=== PATIENT | male | born 1945 | race Caucasian/White ===

== ENCOUNTER 2021-11-07 07:38 | Outpatient (CLI) | payer OTHER, SELFPAY ==
--- NOTE | 2021-11-07 12:00 | CRLHL7_ITS ---
For Patients: As a result of the Century Cures Act, medical imaging exams and procedure reports are released immediately into your electronic medical record. You may view this report before your referring provider. If you have questions, please contact your health care provider. HISTORY: 76-year-old male. Prostate cancer. TECHNIQUE: 26.0 millicuries of [id number] was injected intravenously. Delayed images of the skeleton were obtained in the anterior and posterior projections. FINDINGS: There is good uptake of activity by the skeleton. Mild uptake in the hands and wrists, shoulders, left sternoclavicular joint, cervical, thoracic and lumbar spine, right knee and feet has a pattern and appearance most characteristic of benign arthritic changes. There is urinary contamination. No other significant bony abnormalities are identified. IMPRESSION: 1. There is no convincing evidence of skeletal metastases. 2. There are mild benign-appearing arthritic changes. Dictated by Juventino Morales MD @ 11/07/2021 3:52:21 PM (Electronically Signed)
== END 2021-11-07 07:39 | disposition home or self-care (01) ==
PROVIDERS: Visit Provider Internal Medicine
DX: C61 Malignant neoplasm of prostate (principal); Z01.89 Encounter for other specified special examinations
CPT/HCPCS: 78306; A9503

== ENCOUNTER 2023-11-11 08:07 | Emergency (ER) | payer OTHER, SELFPAY ==
[2023-11-11 08:09] VITALS: BP 115/65; PULSE 56; RESP 16; TEMP 36; O2SAT 99; BMI 21.4
--- NOTE | 2023-11-11 08:49 | ED.GENADULT ---
HPI - General Adult General Date Seen: 11/11/23 Chief complaint: Sore Throat Stated complaint: Sore throat, armpit rash Time Seen by Provider: 11/11/23 08:10 Source: patient Mode of arrival: ambulatory Limitations: no limitations History of Present Illness HPI narrative: patient is a 78-year-old male presenting to the emergency department for concerns about a rash and sore throat. States the rash has been going on for the past few days. It is he notes is and his bilateral axillary and groin regions. Worse in the axillary regions. States he has been working outside for about 10 hours a day in the heat. Denies symptoms like this before. States the going rash isn't really bothering him at this time. Also started noticing yesterday he had a sore throat. Is eating and drinking well. Denies painful swallowing. Denies shortness of breath, chest pain, cough. No other concerns noted. Not aware of any sick contacts. Related Data Home Medications ?Medication ?Instructions ?Recorded ?Confirmed aspirin 81 mg capsule 81 mg PO DAILY 11/11/23 11/11/23 atenolol 25 mg tablet 25 mg PO DAILY 11/11/23 11/11/23 atorvastatin 40 mg tablet 40 mg PO QHS 11/11/23 11/11/23 cholecalif 25 mcg PO DAILY 11/11/23 11/11/23 lisinopril 20 mg tablet 20 mg PO DAILY 11/11/23 11/11/23 Allergies Allergy/AdvReac Type Severity Reaction Status Date / Time No Known Drug Allergies Allergy Verified 11/11/23 08:16 Review of Systems Status of ROS: Reports: 10 or more systems reviewed and unremarkable except as noted in History and below [facility] Medical History Ventral hernia ?K43.9 - Ventral hernia without obstruction or gangrene (ICD-10) Prostate cancer ?C61 - Malignant neoplasm of prostate (ICD-10) Hyperlipidemia ?E78.5 - Hyperlipidemia, unspecified (ICD-10) Hypertension ?I10 - Essential (primary) hypertension (ICD-10) Social History Smoking Status: Current every day smoker What tobacco products do you use: cigarettes Smoking packs per day: 1 Smoking cigarettes per day: 20.0 Do you use any of these nicotine containing products: None How often do you have a drink containing alcohol: 2-3 times a week How many standard drinks containing alcohol do you have on a typical day: 1 or 2 How often do you have six or more drinks on one occasion: Monthly AUDIT-C Alcohol total score: 5 service: Yes Exam Narrative: Exam Narrative: Const: Well-nourished, Well-developed, in No distress Eyes: PERRL, no conjunctival injection, and symmetrical lids HENT: Atraumatic external nose and ears. Moist mucous membranes. uvula midline, no tonsillar exudates or swelling Neck: Symmetric, trachea midline, No thyromegaly. CVS: RRR, No murmurs or gallops. Peripheral pulses 2+ and equal in all extremities RESP: Unlabored respiratory effort. Clear to auscultation bilaterally. GI: Nontender/Nondistended, No rebound or guarding. MSK:Extremities w/o deformity, Normal Active ROM Skin: Warm, Dry. small red vesicles seen in axillary region bilaterally Neuro: Normal Muscle tone, No focal neurological deficits. Psych: Awake, Alert, & Oriented x3. Appropriate mood and affect. Const: Vital Signs, click to edit/add: Vital Signs - 24 hr 11/11/23 08:09 Temperature 96.8 F L Pulse Rate [Pulse Oximeter] 56 L Respiratory Rate 16 Blood Pressure [Le ft Upper Arm] 115/65 Pulse Oximetry 99 Oxygen Delivery Me thod Room Air Course Vital Signs Vital signs: Initial Vital Signs Temperature 96.8 F L 11/11/23 08:09 Temperature Source Temporal Artery Scan 11/11/23 08:09 Pulse Rate 56 L 11/11/23 08:09 Respiratory Rate 16 11/11/23 08:09 Blood Pressure 115/65 11/11/23 08:09 Blood Pressure Mean 81 11/11/23 08:09 Blood Pressure Position Sitting 11/11/23 08:09 Pulse Oximetry 99 11/11/23 08:09 Oxygen Delivery Method Room Air 11/11/23 08:09 Vital Signs Temperature 96.8 F L 11/11/23 08:09 Pulse Rate 56 L 11/11/23 08:09 Respiratory Rate 16 11/11/23 08:09 Blood Pressure 115/65 11/11/23 08:09 Pulse Oximetry 99 11/11/23 08:09 Oxygen Delivery Method Room Air 11/11/23 08:09 Temperature 96.8 F L 11/11/23 08:09 Pulse Rate 56 L 11/11/23 08:09 Respiratory Rate 16 11/11/23 08:09 Blood Pressure 115/65 11/11/23 08:09 Pulse Oximetry 99 11/11/23 08:09 Oxygen Delivery Method Room Air 11/11/23 08:09 Medical Decision Making MDM Narrative Medical decision making narrative: patient is a 78-year-old male presenting for sore throat and rash. This rash appears to be heat related. Is and areas of for chin and appears like Miliaria. no signs of superimposed infection at this time. Antibiotics not necessary. For sore throat I will do a strep swab. 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 Patient is not showing signs of peritonsillar abscess, José angina, retropharyngeal abscess,Lemierre disease or any other concerning oral pharynx or deep neck space abscesses. Imaging is not necessary. Strep swab is negative. Patient will be discharged Lab Data Labs: Lab Results 11/11/23 Range/Units 08:45 Group A Strep DNA NOT DETECTED (Not Detectd) Discharge Plan Discharge Clinical Impression: Miliaria Patient Disposition: Home, Self-Care Condition: Stable Instructions: Zinc Oxide (On the skin) Additional Instructions: your rash appears to be a heat rash. Keep the area dry and clean while working. If symptoms are not improving you can try an [id number] steroid cream. Prescriptions: No Action atenolol 25 mg tablet 25 mg PO DAILY lisinopril 20 mg tablet 20 mg PO DAILY atorvastatin 40 mg tablet 40 mg PO QHS cholecalif 25 mcg PO DAILY Patient Comments: D3-1 1000 units aspirin 81 mg capsule 81 mg PO DAILY Stand Alone Forms: Measurabl Info Instructions
--- OUTSIDE RECORDS SUMMARY | 2023-11-11 09:04 | XMS_ITS | Encounter Summary ---
Author Name [facility] Organization [facility] [place] Address [address] [place] [id number] Care Team Providers Care Special Services Agent Name Role Phone DENY MEANS Primary Care Provider Unavailab le Insurance Providers: All historical and current Section Date Range: From patient's date of to the date document was created. This section includes the names of all active insurance providers for the patient. Insurance Provider Type of Coverage Plan Name Start of Policy Coverage End of Policy Coverage Group Number Member ID Insurance Provider's Telephone Number Policy Razo's Name Patient's Relationship to Policy Razo MEDICARE (WNR) MEDICARE (M) PART A Oct 12, 2011 PART A [phone] [place] PATIENT Selected Encounter This section includes the information on record at [place] for the Encounter. Date/Time Encounter Type Encounter Description Reason Provider Source Oct 14, 2023 10:00 AM OFFICE O/P EST MOD 30 MIN OPHTHALMOLOGY ICD-10-CM H25.13 Age-related nuclear cataract, bilateral ANA,ANUJA Gonzalez IHKaryn Encounter Template Text not used by [place] Assessments - Encounter Diagnoses This section includes the primary and secondary diagnoses documented for the Encounter. Date/Time Primary/Secondary Diagnosis Diagnosis Name Provider Source Oct 14, 2023 11:19 AM PRIMARY Age-related nuclear cataract, bilateral ANAANUJA JORDAN [facility] Oct 14, 2023 11:19 AM SECONDARY Myopia, bilateral ANAANUJA JORDAN [facility] Oct 14, 2023 11:19 AM SECONDARY Presbyopia ANUJA PEREZ [facility] Oct 14, 2023 11:19 AM SECONDARY Unspecified astigmatism, bilateral ANUJA PEREZ [facility] Plan of Treatment: Future Appointments (+ 6 months) and Future Tests (+/- 45 days) The Plan of Treatment section includes future care activities for the patient [facility] [place] [facility] This section includes future appointments and future orders which are active, pending or scheduled. Future Appointments This section includes appointments that were scheduled to occur 6 months from the date of the Encounter, up to a maximum of 20 appointments. The data comes from all [place] treatment facilities. Appointment Date/Time Appointment Type Appointme nt Facility Name Mar 09, 2024 09:30 AM AMBULATORY - SURGERY [facility] Social History: Smoking Status (Most current) and Tobacco Use (All prior to encounter date) This section includes the most current, and the historical, smoking and tobacco- related health factors from the [place] facility where the Encounter took place. Current Smoking Status This section includes the most current smoking, or tobacco-related health factor, from the [place] facility where the Encounter took place. Date/Time Current Smoking Status Comment Khloe ity Jun 25, 2023 10:30 AM VA-TOBACCO USER EVERY DAY [facility] Tobacco Use History This section includes a history of the smoking, or tobacco-related health factors, that were collected on or before the date of the Encounter. The data comes from the [place] facility where the Encounter took place. 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 [facility] Jun 25, 2023 10:30 AM VA-TOBACCO USE MED NO [facility] Jun 25, 2023 10:30 AM VA-TOBACCO USE [place] 30 MIN OF WAKE UP [facility] Jun 25, 2023 10:30 AM VA-TOBACCO USER EVERY DAY [facility] Apr 10, 2022 03:17 PM VA-TOBACCO USE 30 YEARS OR MORE [facility] Apr 10, 2022 03:17 PM VA-TOBACCO USE ADVICE [facility] Apr 10, 2022 03:17 PM VA-TOBACCO USE 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 [facility] Apr 10, 2022 03:17 PM VA-TOBACCO USE MED NO [facility] Apr 10, 2022 03:17 PM VA-TOBACCO USE [place] 30 MIN OF WAKE UP [facility] Apr 10, 2022 03:17 PM VA-TOBACCO USER EVERY DAY [facility] Mar 21, 2021 02:26 PM VA-TOBACCO USE 30 YEARS OR MORE [facility] Mar 21, 2021 02:26 PM VA-TOBACCO USE ADVICE [facility] Mar 21, 2021 02:26 PM VA-TOBACCO USE 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 [facility] Mar 21, 2021 02:26 PM VA-TOBACCO USE MED NO [facility] Mar 21, 2021 02:26 PM VA-TOBACCO USE [place] 30 MIN OF WAKE UP [facility] Mar 21, 2021 02:26 PM VA-TOBACCO USER EVERY DAY [facility] Dec 03, 2018 11:04 AM VA-TOBACCO DOESNT USE [place] 30 MIN WAKEUP [facility] Dec 03, 2018 11:04 AM VA-TOBACCO USE 30 YEARS OR MORE [facility] Dec 03, 2018 11:04 AM VA-TOBACCO USE ADVICE [facility] Dec 03, 2018 11:04 AM VA-TOBACCO USE CARPET INSPECTOR YES [facility] Dec 03, 2018 11:04 AM VA-TOBACCO USE MED YES [facility] Dec 03, 2018 11:04 AM VA-TOBACCO USER EVERY DAY [facility] Apr 21, 2018 12:15 PM VA-TOBACCO USE ADVICE [facility] September 10, 2017 08:58 AM CURRENT TOBACCO USER [facility] Sep 18, 2016 10:12 AM CURRENT TOBACCO USER [facility] Jul 24, 2015 09:40 AM CURRENT TOBACCO USER [facility] Aug 04, 2014 08:53 AM CURRENT TOBACCO USER [facility] August 31, 2013 02:07 PM CURRENT TOBACCO USER [facility] Sep 30, 2011 08:40 AM CURRENT TOBACCO USER [facility] Encounter Notes: All associated encounter notes This section contains the clinical notes associated to the Encounter. Date/Time Encounter Note(s) Provider Source Oct 14, 2023 11:07 AM OPHTHALMOLOGY ATTE NDING NOTE: LOCAL TITLE: OPHTHALMOLOGY CLINIC NOTE STANDARD TITLE: OPHTHALMOLOGY ATTENDING NOTE DATE OF NOTE: OCT 14, 2023@11:07 ENTRY DATE: OCT 14, 2023@11:08:05 AUTHOR: ANUJA PEREZ EXP COSIGNER: URGENCY: STATUS: COMPLETED LOCAL TITLE: PATHOLOGY LAB TECHNICIAN NOTE STANDARD TITLE: PATHOLOGY LAB TECHNICIAN NOTE DATE OF NOTE: OCT 14, 2023@09:52 ENTRY DATE: OCT 14, 2023@09:52:40 AUTHOR: SHI JACOBO EXP COSIGNER: URGENCY: STATUS: COMPLETED Eye Start Exam Patient: [place] Sex: MALE SSN: [id number] Birthdate: [birth year] Chief complaint: patient is here for routine cehck today. states no changes or complaints. Active Problems List: Active problems - Computerized Problem List is the source for the followin. Primary malignant neoplasm of prostate (SNOMED CT 75864537) - Sparkman grade 4+3 2. Personal History of Colonic Polyps 3. Tobacco use (SNOMED CT 844888965) 4. Bilateral inguinal hernia, without mention of obstruction or gangrene - recurrent on right, repaired previously 1996 5. Sensorineural Hearing Loss 6. Tinnitus 7. High cholesterol (SNOMED CT 74302540) 8. Impotence (SNOMED CT 122374557) 9. CHRONC PERIODONTITIS NOS 10. UNSPECIFIED DENTAL CARIES 11. Cataract nos 12. Bradycardia 13. Periodontitis (SNOMED CT 61313989) 14. ARRESTED DENTAL CARIES 15. Essential hypertension 16. CHRONIC PERIODONTITIS, LOCALIZED 17. Loss of teeth (SNOMED CT 03727036) 18. Abdominal aortic aneurysm 3.0 to 5.5 centimeters in male 19. Multiple nodules of lung Surgeries: SURGERIES - NONE FOUND Full Exam Eye Medications Patient denies eye medication use. Allergies: Patient has answered NKA Past Medical History: Hypertension High cholesterol Cancer Past eye history: Past eye surgeries: Denies all Last refraction: Vision: OD:CC(with glasses) OD: 20/30-2 Pinhole: 20/ Near: 20/ Vision: OS:CC(with glasses) 0S: 20/30-1 Pinhole: 20/ Near: 20/ Current glasses: OD:-5.50 +2.25X95 Prism: OS:-5.75 +2.00X80 Prism: Add: Refraction: Manifest: YES Automated: NO OD:-5.50 +2.20Q968 20/30 OS:-5.50 +2.00X80 20/30-1 Balance: Add: +2.50 Near vision: OD : OS : OU 20 Comment: Confrontational Montiel: Full to finger counting: Right: Left: Yes Extra Ocular Movement: Normal Pupils: Right: Round Left: Round Size: Right: 3 Left: 3 React to light: Right: Yes Left: Yes Afferent pupil defect: Right:No Grade: Left: No Grade: Note: Intra-ocular pressure (IOP): OD: 14 OS: 13 iCare Dilation: mydriacyl 1% and neosynephrine OU Oct@10:04 I have reviewed and agree with the elevator technician note of today Patient is alert and oriented X3 and mood and affect are appropriate. SLE: External: normal ou Lid/Lash: normal ou Conj/Sclera:clear and quiet ou Cornea: clear ou AC: Deep & quiet ou Iris: normal without RI or defects ou Lens: 2+ ns ou Dilated exam: yes Optic nerve: normal ou, vC/D:0.3/0.3 Macula:no defects or abnormalities ou Vessels: normal ou Periphery: Flat, no abnormalities ou Vitreous: Normal, no pigment or heme ou Assessment/Plan: ns cat ou monitor, jackie velez myopia astig presbyopia RTC:1 y, mr, vtd sooner with changes Total time spent on spent on testing/chart review, exam, discussion, and charting was in excess of 30 minutes. /kasi/ ANUJA PEREZ MD STAFF BOW REPAIRER CUSTOM Signed: 10/14/2023 11:19 ANUJA PEREZ [facility] Oct 14, 2023 09:52 AM OPHTHALMOLOGY TECH NICIAN NOTE: LOCAL TITLE: PATHOLOGY LAB TECHNICIAN NOTE STANDARD TITLE: PATHOLOGY LAB TECHNICIAN NOTE DATE OF NOTE: OCT 14, 2023@09:52 ENTRY DATE: OCT 14, 2023@09:52:40 AUTHOR: SHI JACOBO EXP COSIGNER: URGENCY: STATUS: COMPLETED Eye Start Exam Patient: [place] Sex: MALE SSN: [id number] Birthdate: [birth year] Chief complaint: patient is here for routine cehck today. states no changes or complaints. Active Problems List: Active problems - Computerized Problem List is the source for the followin. Primary malignant neoplasm of prostate (SNOMED CT 22424555) - Sparkman grade 4+3 2. Personal History of Colonic Polyps 3. Tobacco use (SNOMED CT 607668431) 4. Bilateral inguinal hernia, without mention of obstruction or gangrene - recurrent on right, repaired previously 1996 5. Sensorineural Hearing Loss 6. Tinnitus 7. High cholesterol (SNOMED CT 58966452) 8. Impotence (SNOMED CT 247993055) 9. CHRONC PERIODONTITIS NOS 10. UNSPECIFIED DENTAL CARIES 11. Cataract nos 12. Bradycardia 13. Periodontitis (SNOMED CT 71607091) 14. ARRESTED DENTAL CARIES 15. Essential hypertension 16. CHRONIC PERIODONTITIS, LOCALIZED 17. Loss of teeth (SNOMED CT 54230733) 18. Abdominal aortic aneurysm 3.0 to 5.5 centimeters in male 19. Multiple nodules of lung Surgeries: SURGERIES - NONE FOUND Full Exam Eye Medications Patient denies eye medication use. Allergies: Patient has answered NKA Past Medical History: Hypertension High cholesterol Cancer Past eye history: Past eye surgeries: Denies all Last refraction: Vision: OD:CC(with glasses) OD: 20-2 Pinhole: 20/ Near: 20/ Vision: OS:CC(with glasses) 0S: -1 Pinhole: 20/ Near: 20/ Current glasses: OD:-5.50 +2.25X95 Prism: OS:-5.75 +2.00X80 Prism: Add: Refraction: Manifest: YES Automated: NO OD:-5.50 +2.67B692 20/30 OS:-5.50 +2.00X80 -1 Balance: Add: +2.50 Near vision: OD : OS : OU 20 Comment: Confrontational Montiel: Full to finger counting: Right: Left: Yes Extra Ocular Movement: Normal Pupils: Right: Round Left: Round Size: Right: 3 Left: 3 React to light: Right: Yes Left: Yes Afferent pupil defect: Right:No Grade: Left: No Grade: Note: Intra-ocular pressure (IOP): OD: 14 OS: 13 iCare Dilation: mydriacyl 1% and neosynephrine OU Oct@10:04 /kasi/ SHI JACOBO SENIOR ACCOUNTING MANAGER Signed: 10/14/2023 10:05 SHI JACOBO [facility]
--- OUTSIDE RECORDS SUMMARY | 2023-11-11 09:04 | XMS_ITS | Continuity of Care Document ---
Author Name [facility] Organization [facility] Care Team Providers Care Sales Planning Coordinator Name Role Phone [facility] Unavailable Unavailable Problems Combined list of problems from Department of Defense and [facility] Affairs facilities. It does not include entries that were removed or entered in error. Problem Status Onset Date Problem Type Date of Resolution Comments Source Primary malignant neoplasm of prostate (SNOMED CT 16307326) Active 1 Condition Oct 06, 2011 Entered By: EB CHONG Comment: Elda grade 4+3 [facility] Personal History of Colonic Polyps Active 1 Condition [facility] Abdominal aortic aneurysm 3.0 to 5.5 centimeters in male Active Condition [facility] ARRESTED DENTAL CARIES Active Condition [facility] Bilateral inguinal hernia, without mention of obstruction or gangrene Active Condition Sep 30, 2011 Entered By: EB CHONG Comment: recurrent on right, repaired previously 1996 [facility] Bradycardia [facility] Cataract nos Active Condition [facility] CHRONC PERIODONTITIS NOS Active Condition [facility] CHRONIC PERIODONTITIS, LOCALIZED Active Condition [facility] Essential hypertension Active Condition [facility] High cholesterol (SNOMED CT 47972344) Active Condition [facility] Impotence (SNOMED CT 334793092) Active Condition [facility] Loss of teeth (SNOMED CT 88410410) Active Condition [facility] Multiple nodules of lung Active Condition [facility] Periodontitis (SNOMED CT 40089978) Active Condition [facility] Sensorineural Hearing Loss Active Condition [facility] Tinnitus Active Condition [facility] Tobacco use (SNOMED CT 341471045) Active Condition [facility] UNSPECIFIED DENTAL CARIES Active Condition [facility] Diagnosis: ICD-10-CM H25.13 Age-related nuclear cataract, bilateral Active Diagnosis [facility] Diagnosis: ICD-10-CM K02.62 Dental caries on smooth surface penetrating into dentin Active Diagnosis [facility] Diagnosis: ICD-10-CM K05.322 Chronic periodontitis, generalized, moderate Active Diagnosis [facility] Diagnosis: ICD-10-CM I10 Essential (primary) hypertension Active Diagnosis [facility] Diagnosis: ICD-10-CM C61 Malignant neoplasm of prostate Active Diagnosis [facility] Diagnosis: ICD-10-CM K08.434 Partial loss of teeth due to caries, class IV Active Diagnosis [facility] Diagnosis: ICD-10-CM K03.81 Cracked tooth Active Diagnosis [facility] Diagnosis: ICD-10-CM K02.53 Dental caries on pit and fissure surface penetrat into pulp Active Diagnosis [facility] Medications Combined list of outpatient medications from Department of Defense and [facility] Affairs facilities.Medications provided include 1) outpatient medications from the last 15 months, and 2) patient-reported medications. Medication Details Route Status Patient Instructions Prescription Expires Prescription Number Last Dispense Date Ordering Provider Order Date Order Qty Source AMMONIUM LACTATE 12% LOTION AMMONIUM LACTATE 12% LOTION Active APPLY THIN LAYER TOPICALL Y TWICE A DAY FOR DRY SKIN/JENNIFER KARL FOR DRY SKIN/JENNIFER KARL Dec 05, 2022 240 Dec 06, 2023 [id number] Dec 08, 2022 DENY MEANS [facility] TOPICA L ACTIVE 12/06/2023 [id number] 3 DENY MEANS [address] [facility] ASPIRIN 81MG TAB,EC ASPIRIN 81MG TAB,EC Active TAKE ONE TABLET BY MOUTH EVERY DAY TO PREVENT HEART ATTACK DO NOT CHEW TO PREVENT HEART ATTACK DO NOT CHEW Nov 06, 2023 120 Nov 06, 2024 [id number] Nov 10, 2023 DENY MEANS [facility] ORAL ACTIVE 11/06/2024 [id number] DENY MEANS [address] [facility] ASPIRIN 81MG TAB,EC ASPIRIN 81MG TAB,EC TAKE ONE TABLET BY MOUTH EVERY DAY TO PREVENT HEART ATTACK DO NOT CHEW TO PREVENT HEART ATTACK DO NOT CHEW Apr 15, 2022 120 Apr 16, 2023 [id number] G Dec 05, 2022 DENY MEANS [facility] ORAL 04/16/2023 [id number] 3 DENY MEANS [address] [facility] ATENOLOL 25MG TAB ATENOLOL 25MG TAB Active: Susp TAKE ONE TABLET BY MOUTH EVERY DAY FOR BLOOD PRESSURE Jun 12, 2023 90 Jun 12, 2024 [id number] H Dec 02, 2023 [facility] ORAL SUSPEND ED 06/12/2024 [id number] DENY MEANS [place] 2023 90 [facility] ATENOLOL 25MG TAB ATENOLOL 25MG TAB Disconti nued TAKE ONE TABLET BY MOUTH EVERY DAY FOR BLOOD PRESSURE Apr 15, 2022 90 Apr 16, 2023 [id number] G Mar 06, 2023 DENY MEANS [facility] ORAL DISCONT INUED 04/16/2023 [id number] MEANSDENY [place] [address] [facility] ATORVASTATI N [place] 40MG TAB ATORVAST ATIN [place] 40MG TAB Active TAKE ONE TABLET BY MOUTH AT BEDTIME FOR CHOLESTE ROL Apr 17, 2023 90 Apr 17, 2024 [id number] D Oct 26, 2023 MEANSDENY Williamson [facility] ORAL ACTIVE 04/17/2024 [id number] DENY MEANS [place] 2023 90 [facility] ATORVASTATI N [place] 40MG TAB ATORVAST ATIN [place] 40MG TAB Disconti nued TAKE ONE TABLET BY MOUTH AT BEDTIME FOR CHOLESTE ROL Apr 15, 2022 90 Apr 16, 2023 [id number] C Dec 05, 2022 MEANSDENY Williamson [facility] ORAL DISCONT INUED 04/16/2023 [id number] 3 MEANSDENY [place] 2022 90 [facility] CHOLECALCIF PETRONA 25MCG (1,000UNIT) TAB CHOLECAL CIFEROL 25MCG (1,000UN IT) TAB Active TAKE ONE TABLET BY MOUTH EVERY DAY FOR VITAMIN- D Apr 17, 2023 100 Apr 17, 2024 [id number] D Oct 26, 2023 MEANS DENY [facility] ORAL ACTIVE 04/17/2024 [id number] 4 DENY MEANS [address] [facility] CHOLECALCIF PET[place]A 25MCG (1,000UNIT) TAB CHOLECAL CIFEROL 25MCG (1,000UN IT) TAB Disconti nued TAKE ONE TABLET BY MOUTH EVERY DAY FOR VITAMIN- D Apr 15, 2022 100 Apr 16, 2023 [id number] C Dec 05, 2022 DENY MEANS [facility] ORAL DISCONT INUED 04/16/2023 [id number] 3 DENY MEANS [address] [facility] LISINOPRIL 20MG TAB LISINOPR [place] 20MG TAB Active TAKE ONE TABLET BY MOUTH EVERY DAY FOR BLOOD PRESSURE Jun 12, 2023 90 Jun 12, 2024 [id number] A September 08, 2023 DENY MEANS [facility] ORAL ACTIVE 06/12/2024 [id number] 4 DENY MEANS [address] [facility] LISINOPRIL 20MG TAB LISINOPR [place] 20MG TAB Disconti nued TAKE ONE TABLET BY MOUTH EVERY DAY FOR BLOOD PRESSURE Apr 15, 2022 90 Apr 16, 2023 [id number] Mar 06, 2023 DENY MEANS [facility] ORAL DISCONT INUED 04/16/2023 [id number] DENY MEANS [address] [facility] SILDENAFIL CITRATE 100MG TAB SILDENAF IL CITRATE 100MG TAB TAKE ONE TABLET BY MOUTH NEEDED FOR ERECTION S -TAKE 1 HOUR BEFORE ANTICIPA YESENIA SEXUAL ACTIVITY --MAXIMU M 4 DOSES FOR 30-DAY SUPPLY Apr 15, 2022 4 Apr 16, 2023 [id number] F Dec 05, 2022 DENY MEANS [facility] ORAL 04/16/2023 [id number] 3 DENY MEANS [address] [facility] Immunizations Combined list of available immunizations from the Department of Defense and Veterans Affairs facilities. Immunization Series Date Given Administered By Site Reaction Lot Number CVX Code Drug Quality Assistant Status Comments Source COVID-19 ([facility]), MRNA, LNP-S, PF, 30 MCG/0.3 ML DOSE, ALLEN-SUCROSE (AGES 12+ YEARS) 4 2021 217 complet ed PFR; [id number]; 2 [facility] COVID-19 (PFIZER), MRNA, LNP-S, PF, 30 MCG/0.3 ML DOSE 3 2020 208 complet ed PFR; [id number]; 2 [facility] INFLUENZA, INJECTABLE, QUADRIVALENT, PRESERVATIVE FREE [address] [facility] COVID-19 (P[facility]), MRNA, LNP-S, PF, 30 MCG/0.3 ML DOSE [address] [facility] COVID-19 ([facility]), MRNA, LNP-S, PF, 30 MCG/0.3 ML DOSE 1 [address] [facility] TDAP [address] [facility] Results Combined list of recent chemistry, hematology and other laboratory results from Department of Defense and [facility] Affairs, ranging from 15 months to all on record, depending upon the facility. Order Name Results Value Reference Range Date Interpretation Specimen Comments Source HEMOGLOBI N A1C HEMOGLOBIN A1C/HEMOGLO BIN.TOTAL IN BLOOD 5.8 4.0 - 6.0 06/24 Specimen Type: BLOOD Comment: Values obtained from A1C measurement s can vary. For typical A1C assays, a reported value of 7.0 could actually be between 6.7 and 7.3 if measured by a reference method. A reported value of 9.0 could actually be between 8.7 and 9.3. Ref: http://[email or web address]/[place] Pdata.asp Ordering Provider: ME BEN MEANS Report Released Date/Time: Dec 05, 2022 02:04 PM Reporting Lab: [facility] [address] Performing Lab: [facility] [address] [facility] PSA PROSTATE SPECIFIC AG [MASS/VOLUM E] IN SERUM OR PLASMA 66.20 ng/mL <4.00 - 4.00 06/24 H Specimen Type: SERUM No comment entered. Ordering Provider: ME BEN MEANS Report Released Date/Time: Dec 05, 2022 02:04 PM Reporting Lab: [facility] [address] Performing Lab: [facility] [address] [place] [facility] LIPID PANEL,NON -FASTING CHOLESTEROL [MASS/VOLUM E] IN SERUM OR PLASMA 192 mg/dL <199 - 199 06/24 Specimen Type: PLASMA No comment entered. Ordering Provider: ME BEN MEANS Report Released Date/Time: Dec 05, 2022 02:04 PM Reporting Lab: [facility] [address] Performing Lab: [facility] [address] [place] [facility] LIPID PANEL,NON -FASTING CHOLESTEROL IN HDL [MASS/VOLUM E] IN SERUM OR PLASMA 41 mg/dL 40 06/24 Specimen Type: PLASMA No comment entered. Ordering Provider: ME BEN MEANS Report Released Date/Time: Dec 05, 2022 02:04 PM Reporting Lab: [facility] [address] Performing Lab: [facility] [address] [place] [facility] LIPID PANEL,NON -FASTING CHOLESTEROL IN LDL [MASS/VOLUM E] IN SERUM OR PLASMA BY CALCULATION 125 mg/dL <99 - 99 06/24 H Specimen Type: PLASMA No comment entered. Ordering Provider: ME BEN MEANS Report Released Date/Time: Dec 05, 2022 02:04 PM Reporting Lab: [facility] [address] Performing Lab: [facility] [address] [place] [facility] LIPID PANEL,NON -FASTING CHOLESTEROL IN VLDL [MASS/VOLUM E] IN SERUM OR PLASMA BY CALCULATION 26 mg/dL <29 - 29 06/24 Specimen Type: PLASMA No comment entered. Ordering Provider: ME BEN MEANS Report Released Date/Time: Dec 05, 2022 02:04 PM Reporting Lab: [facility] [address] Performing Lab: [facility] [address] [place] [facility] LIPID PANEL,NON -FASTING CHOLESTEROL NON HDL [MASS/VOLUM E] IN SERUM OR PLASMA 151 mg/dL <129 - 129 06/24 H Specimen Type: PLASMA No comment entered. Ordering Provider: ME BEN MEANS Report Released Date/Time: Dec 05, 2022 02:04 PM Reporting Lab: [facility] [address] Performing Lab: [facility] [address] [place] [facility] LIPID PANEL,NON -FASTING TRIGLYCERID E [MASS/VOLUM E] IN SERUM OR PLASMA 128 mg/dL <149 - 149 06/24 Specimen Type: PLASMA No comment entered. Ordering Provider: ME BEN MEANS Report Released Date/Time: Dec 05, 2022 02:04 PM Reporting Lab: [facility] [address] Performing Lab: [facility] [address] [place] [facility] BASIC METABOLIC PANEL+MG CREATININE [MASS/VOLUM E] IN SERUM OR PLASMA 1.1 mg/dL 0.7 - 1.2 06/24 Specimen Type: PLASMA No comment entered. Ordering Provider: ME BEN MEANS Report Released Date/Time: Dec 05, 2022 02:04 PM Reporting Lab: [facility] [address] Performing Lab: [facility] [address] [place] [facility] BASIC METABOLIC PANEL+MG UREA NITROGEN [MASS/VOLUM E] IN SERUM OR PLASMA 17 mg/dL 8 - 26 06/24 Specimen Type: PLASMA No comment entered. Ordering Provider: ME BEN MEANS Report Released Date/Time: Dec 05, 2022 02:04 PM Reporting Lab: [facility] [address] Performing Lab: [facility] [address] [place] [facility] BASIC METABOLIC PANEL+MG GLUCOSE [MASS/VOLUM E] IN SERUM OR PLASMA 84 mg/dL 70 - 100 06/24 Specimen Type: PLASMA No comment entered. Ordering Provider: ME BEN MEANS Report Released Date/Time: Dec 05, 2022 02:04 PM Reporting Lab: [facility] [address] Performing Lab: [facility] [address] [place] [facility] BASIC METABOLIC PANEL+MG SODIUM [MOLES/VOLU ME] IN SERUM OR PLASMA 140 mmol/L 136 - 145 06/24 Specimen Type: PLASMA No comment entered. Ordering Provider: ME BEN MEANS Report Released Date/Time: Dec 05, 2022 02:04 PM Reporting Lab: [facility] [address] Performing Lab: [facility] [phone] [place] [facility] BASIC METABOLIC PANEL+MG POTASSIUM [MOLES/VOLU ME] IN SERUM OR PLASMA 3.8 mmol/L 3.5 - 5.1 06/24 Specimen Type: PLASMA No comment entered. Ordering Provider: ME BEN MEANS Report Released Date/Time: Dec 05, 2022 02:04 PM Reporting Lab: [facility] [address] Performing Lab: [facility] [address] [place] [facility] BASIC METABOLIC PANEL+MG CHLORIDE [MOLES/VOLU ME] IN SERUM OR PLASMA 106 mmol/L 98 - 107 06/24 Specimen Type: PLASMA No comment entered. Ordering Provider: ME BEN MEANS Report Released Date/Time: Dec 05, 2022 02:04 PM Reporting Lab: [facility] [address] Performing Lab: [facility] [address] [place] [facility] BASIC METABOLIC PANEL+MG CARBON DIOXIDE, TOTAL [MOLES/VOLU ME] IN SERUM OR PLASMA 23 mmol/L 22 - 29 06/24 Specimen Type: PLASMA No comment entered. Ordering Provider: ME BEN MEANS Report Released Date/Time: Dec 05, 2022 02:04 PM Reporting Lab: [facility] [address] Performing Lab: [facility] [address] [place] [facility] BASIC METABOLIC PANEL+MG CALCIUM [MASS/VOLUM E] IN SERUM OR PLASMA 9.8 mg/dL 8.4 - 10.2 06/24 Specimen Type: PLASMA No comment entered. Ordering Provider: ME BEN MEANS Report Released Date/Time: Dec 05, 2022 02:04 PM Reporting Lab: [facility] [address] Performing Lab: [facility] [address] [place] [facility] BASIC METABOLIC PANEL+MG MAGNESIUM [MASS/VOLUM E] IN SERUM OR PLASMA 1.9 mg/dL 1.6 - 2.6 06/24 Specimen Type: PLASMA No comment entered. Ordering Provider: ME BEN MEANS Report Released Date/Time: Dec 05, 2022 02:04 PM Reporting Lab: [facility] [address] Performing Lab: [facility] [address] [place] [facility] BASIC METABOLIC PANEL+MG ANION GAP IN SERUM OR PLASMA 11 mmol/L 5 - 15 06/24 Specimen Type: PLASMA No comment entered. Ordering Provider: ME BEN MEANS Report Released Date/Time: Dec 05, 2022 02:04 PM Reporting Lab: [facility] [address] Performing Lab: [facility] [address] [place] [facility] BASIC METABOLIC PANEL+MG GLOMERULAR FILTRATION RATE/1.73 SQ M.PREDICTED [VOLUME RATE/AREA] IN SERUM, PLASMA OR BLOOD BY CREATININE- BASED FORMULA (CKD-EPI 2020) 70 60 06/24 Specimen Type: PLASMA No comment entered. Ordering Provider: ME BEN MEANS Report Released Date/Time: Dec 05, 2022 02:04 PM Reporting Lab: [facility] [address] Performing Lab: [facility] [address] [place] [facility] POC CREATININ E CREATININE [MASS/VOLUM E] IN BLOOD 1.1 mg/dL 0.6 - 1.3 01/22 Specimen Type: BLOOD No comment entered. Ordering Provider: ME BEN MEANS Report Released Date/Time: Jan 22, 2023 09:42 AM Reporting Lab: [facility] [address] Performing Lab: [facility] [address] [place] [facility] HEMOGLOBI N A1C HEMOGLOBIN A1C/HEMOGLO BIN.TOTAL IN BLOOD 5.5 4.0 - 6.0 12/05 Specimen Type: BLOOD Comment: Values obtained from A1C measurement s can vary. For typical A1C assays, a reported value of 7.0 could actually be between 6.7 and 7.3 if measured by a reference method. A reported value of 9.0 could actually be between 8.7 and 9.3. Ref: http://www. [email or web address]/[place] Pdata.asp Ordering Provider: ME BEN MEANS Report Released Date/Time: May 25, 2022 03:13 PM Reporting Lab: [facility] [address] Performing Lab: [facility] [address] [place] [facility] PSA PROSTATE SPECIFIC AG [MASS/VOLUM E] IN SERUM OR PLASMA 60.50 ng/mL <4.00 - 4.00 12/05 H Specimen Type: SERUM No comment entered. Ordering Provider: ME BEN MEANS Report Released Date/Time: May 25, 2022 03:13 PM Reporting Lab: [facility] [address] Performing Lab: [facility] [address] [place] [facility] BASIC METABOLIC PANEL+MG CREATININE [MASS/VOLUM E] IN SERUM OR PLASMA 1.1 mg/dL 0.7 - 1.2 12/05 Specimen Type: PLASMA No comment entered. Ordering Provider: ME BEN MEANS Report Released Date/Time: May 25, 2022 03:13 PM Reporting Lab: [facility] [address] Performing Lab: [facility] [address] [place] [facility] BASIC METABOLIC PANEL+MG UREA NITROGEN [MASS/VOLUM E] IN SERUM OR PLASMA 11 mg/dL 8 - 12/05 Specimen Type: PLASMA No comment entered. Ordering Provider: ME BEN MEANS Report Released Date/Time: May 25, 2022 03:13 PM Reporting Lab: [facility] [address] Performing Lab: [facility] [address] [place] [facility] BASIC METABOLIC PANEL+MG GLUCOSE [MASS/VOLUM E] IN SERUM OR PLASMA 100 mg/dL 70 - 100 12/05 Specimen Type: PLASMA No comment entered. Ordering Provider: ME BEN MEANS Report Released Date/Time: May 25, 2022 03:13 PM Reporting Lab: [facility] [address] Performing Lab: [facility] [address] [place] [facility] BASIC METABOLIC PANEL+MG SODIUM [MOLES/VOLU ME] IN SERUM OR PLASMA 138 mmol/L 136 - 145 12/05 Specimen Type: PLASMA No comment entered. Ordering Provider: ME BEN MEANS Report Released Date/Time: May 25, 2022 03:13 PM Reporting Lab: [facility] [address] Performing Lab: [facility] [address] [place] [facility] BASIC METABOLIC PANEL+MG POTASSIUM [MOLES/VOLU ME] IN SERUM OR PLASMA 3.9 mmol/L 3.5 - 5.1 12/05 Specimen Type: PLASMA No comment entered. Ordering Provider: ME BEN MEANS Report Released Date/Time: May 25, 2022 03:13 PM Reporting Lab: [facility] [address] Performing Lab: [facility] [address] [place] [facility] BASIC METABOLIC PANEL+MG CHLORIDE [MOLES/VOLU ME] IN SERUM OR PLASMA 103 mmol/L 98 - 107 12/05 Specimen Type: PLASMA No comment entered. Ordering Provider: ME BEN MEANS Report Released Date/Time: May 25, 2022 03:13 PM Reporting Lab: [facility] [address] Performing Lab: [facility] [address] [place] [facility] BASIC METABOLIC PANEL+MG CARBON DIOXIDE, TOTAL [MOLES/VOLU ME] IN SERUM OR PLASMA 25 mmol/L 22 - 29 12/05 Specimen Type: PLASMA No comment entered. Ordering Provider: ME BEN MEANS Report Released Date/Time: May 25, 2022 03:13 PM Reporting Lab: [facility] [address] Performing Lab: [facility] [address] [place] [facility] BASIC METABOLIC PANEL+MG CALCIUM [MASS/VOLUM E] IN SERUM OR PLASMA 9.4 mg/dL 8.4 - 10.2 12/05 Specimen Type: PLASMA No comment entered. Ordering Provider: ME BEN MEANS Report Released Date/Time: May 25, 2022 03:13 PM Reporting Lab: [facility] [address] Performing Lab: [facility] [address] [place] [facility] BASIC METABOLIC PANEL+MG MAGNESIUM [MASS/VOLUM E] IN SERUM OR PLASMA 1.7 mg/dL 1.6 - 2.6 12/05 Specimen Type: PLASMA No comment entered. Ordering Provider: ME BEN MEANS Report Released Date/Time: May 25, 2022 03:13 PM Reporting Lab: [facility] [address] Performing Lab: [facility] [address] [place] [facility] BASIC METABOLIC PANEL+MG ANION GAP IN SERUM OR PLASMA 10 mmol/L 5 - 15 12/05 Specimen Type: PLASMA No comment entered. Ordering Provider: ME BEN MEANS Report Released Date/Time: May 25, 2022 03:13 PM Reporting Lab: [facility] [address] Performing Lab: [facility] [address] [place] [facility] BASIC METABOLIC PANEL+MG GLOMERULAR FILTRATION RATE/1.73 SQ M.PREDICTED [VOLUME RATE/AREA] IN SERUM, PLASMA OR BLOOD BY CREATININE- BASED FORMULA (CKD-EPI 2020) 70 60 12/05 Specimen Type: PLASMA No comment entered. Ordering Provider: ME BEN MEANS Report Released Date/Time: May 25, 2022 03:13 PM Reporting Lab: [facility] [address] Performing Lab: [facility] [address] [place] [facility] HEMOGLOBI N A1C HEMOGLOBIN A1C/HEMOGLO BIN.TOTAL IN BLOOD 5.6 4.0 - 6.0 05/20 Specimen Type: BLOOD Comment: Values obtained from A1C measurement s can vary. For typical A1C assays, a reported value of 7.0 could actually be between 6.7 and 7.3 if measured by a reference method. A reported value of 9.0 could actually be between 8.7 and 9.3. Ref: [email or web address]://[email or web address]/[place] Pdata.asp Ordering Provider: ME BEN MEANS Report Released Date/Time: Oct 15, 2021 01:59 PM Reporting Lab: [facility] [address] Performing Lab: [facility] [address] [facility] PSA PROSTATE SPECIFIC AG [MASS/VOLUM E] IN SERUM OR PLASMA 42.32 ng/mL <4.00 - 4.00 05/20 H Specimen Type: SERUM No comment entered. Ordering Provider: ME BEN MEANS Report Released Date/Time: Oct 15, 2021 01:59 PM Reporting Lab: [facility] [address] Performing Lab: [facility] [address] [facility] Vital Signs Combined list of inpatient and outpatient Vital Signs from Department of Defense and Veterans Affairs, ranging from 12 months to all on record, depending upon the facility. Vital Sign Value Date Comments Source Encounters Combined list of: 1) Encounters from Department of Veterans Affairs facilities going back up to thelast 18 months. 2) Encounters from the Department of Defense facilities going back up to 280 months. Location Location Details Encounter Type Encounter Number Reason For Visit Attending Provider ADM Date DC Date Status Disposition Source [facility] Outpatient Encounter [id number] 05/20 [facility] OFFICE O/P EST MOD 30-39 MIN [id number] Diagnos is: ICD-10- CM C61 Maligna nt neoplas m of prostat e
Mark MEANS 05/20 [facility] Outpatient Encounter [id number] MICHAEL GUADARRAMA 05/21 [facility] Outpatient Encounter [id number] 06/03 [facility] LIMIT ORAL EVAL PROBLM FOCUS [id number] Diagnos is: ICD-10- CM K02.53 Dental caries on pit and fissure surface penetra t into pulp
KEMSHARON 07/03 [facility] INTRAORAL PERIAPICAL FIRST [id number] Diagnos is: ICD-10- CM K03.81 Cracked tooth<b r/> DAPHNE BURCIAGA L B 09/01 [facility] Outpatient Encounter [id number] 09/01 [facility] FIXED PROSTHODON TIC PROC [id number] Diagnos is: ICD-10- CM K08.434 Partial loss of teeth due to caries, class IV
WEKarynSHARON 09/04 [facility] Outpatient Encounter [id number] 10/10 [facility] OFFICE O/P EST MOD 30-39 MIN [id number] Diagnos is: ICD-10- CM H25.13 Age-rel ated nuclear catarac t, bilater al
RHODA,MITC HELL E 10/16 [facility] DIAGNOSTIC CASTS [id number] Diagnos is: ICD-10- CM K08.434 Partial loss of teeth due to caries, class IV
KEMSHARON G 10/23 [facility] DENTURE TISS CONDITN MAXILL [id number] Diagnos is: ICD-10- CM K08.434 Partial loss of teeth due to caries, class IV
WESHRAON Boss 10/23 [facility] Outpatient Encounter [id number] 10/23 [place] [facility] [place] [facility] OFFICE O/P EST MOD 30-39 MIN [id number] Diagnos is: ICD-10- CM C61 Maligna nt neoplas m of prostat e
MEANS,M ELODY A 12/05 [facility] PRECISION ATTACHMENT REMOV [id number] Diagnos is: ICD-10- CM K08.434 Partial loss of teeth due to caries, class IV
SHARON BROWNLEE 12/18 [facility] [place] [facility] Outpatient Encounter [id number] 01/22 [facility] CLEAN/INSP ECT MAX PART DENT [id number] Diagnos is: ICD-10- CM K08.434 Partial loss of teeth due to caries, class IV
SHARON BROWNLEE 01/22 [facility] [place] [facility] Outpatient Encounter [id number] CLARA TEJADA SA 01/23 [facility] [place] [facility] Outpatient Encounter [id number] 02/13 [place] [facility] [place] [facility] Outpatient Encounter [id number] 05/18 [place] [facility] [place] [facility] Outpatient Encounter [id number] MICHAEL GUADARRAMA 05/21 [place] [facility] [place] [facility] OFFICE O/P EST MOD 30 MIN [id number] Diagnos is: ICD-10- CM C61 Maligna nt neoplas m of prostat e
MEANS,M ELODY A 06/24 [facility] [place] [facility] Outpatient Encounter [id number] 06/30 [facility] PRO PHONE CALL 5-10 MIN [id number] Diagnos is: ICD-10- CM I10 Essenti al (primar y) hyperte nsion<b r/> SERRANO,AND REID A 07/07 [facility] CLEAN/INSP ECT MAX PART DENT [id number] Diagnos is: ICD-10- CM K05.322 Chronic periodo ntitis, general ized, moderat e
BINTA,KAET HERINE R 07/22 [facility] PERIODIC ORAL EVAL EST [id number] Diagnos is: ICD-10- CM K02.62 Dental caries on smooth surface penetra ting into dentin< br/> WEKarynSHARON Carroll 07/22 [facility] CLEAN/INSP ECT DEANNA PART DENT [id number] Diagnos is: ICD-10- CM K02.62 Dental caries on smooth surface penetra ting into dentin< br/> KEMSHARON G 09/02 [facility] OFFICE O/P EST MOD 30 MIN [id number] Diagnos is: ICD-10- CM H25.13 Age-rel ated nuclear catarac t, bilater al
ANA,STEW ART J 10/13 [facility] Social History Combined list of available smoking, tobacco, and other social history from Department of Defense and [facility] Affairs facilities. Social History Type Response Date Comment Sourc e Tobacco smoking status NHIS VA-TOBACCO USER EVERY DAY 06/25/2023 [facility] History of tobacco use WA-TOBACCO USE WI 30 MIN OF WAKEUP 06/25/2023 [facility] History of tobacco use WA-TOBACCO USER E VERY DAY 04/10/2022 [facility] History of tobacco use WA-TOBACCO USER E VERY DAY 03/21/2021 [facility] History of tobacco use [place]-TOBACCO USE CO UNSEL YES 12/03/2018 [facility] History of tobacco use VA-TOBACCO USE ADVICE 04/21/2018 [facility] History of tobacco use CURRENT TOBACCO USER 09/10/2017 [facility] History of tobacco use CURRENT TOBACCO USER 09/18/2016 [facility] History of tobacco use CURRENT TOBACCO USER 07/24/2015 [facility] History of tobacco use CURRENT TOBACCO USER 08/04/2014 [facility] History of tobacco use CURRENT TOBACCO USER 08/31/2013 [facility] History of tobacco use CURRENT TOBACCO USER 09/30/2011 [facility] Plan of Care List of future care activities from [facility] Affairs facilities. Additional future care activities may be listed in the Assessment and Plan section. Date/Time Care Activity Care Activity Detail Facili ty 03/09/2024 AMBULATORY - SURGERY AMBULATORY - SURGERY [facility]
--- OUTSIDE RECORDS SUMMARY | 2023-11-11 09:04 | XMS_ITS | Encounter Summary ---
Author Name [facility] [place] [facility] [place] Address [address] [place] [address] Care Team Providers Care Legal Associate Name Role Phone DENY MEANS Primary Care [...] PART A Oct 12, 2011 PART A [id number] [phone] [place] PATIENT Selected Encounter This section includes the information on record at [place] for the Encounter. Date/Time Encounter Type Encounter Description Reason Provider Source May 21, 2023 08:24 AM Outpatient Encounter ADMIN PAT ACTIVTIES (MASNONCT) FLAKITO GUADARRAMA Encounter Template Text not used by [place] Plan of Treatment: Future Appointments (+ 6 months) and Future Tests (+/- 45 days) The Plan of Treatment section includes future care activities for the patient from all [place] treatmentfacilities. This section includes future appointments and future orders which are active, pending or scheduled. Future Appointments This section includes appointments that were scheduled to occur 6 months from the date of the Encounter, up to a maximum of 20 appointments. The data comes from all [place] treatment facilities. Appointment Date/Time Appointment Type Appointme nt Facility Name Jun 25, 2023 09:30 AM AMBULATORY - NONE BRYANNA PIERCE [facility] Jun 25, 2023 10:30 AM AMBULATORY - MEDICINE HEMANT MARTINES [facility] Jul 23, 2023 10:30 AM [facility] SUR[facility] Jul 23, 2023 10:31 AM AMBULATORY - SURGERY JERMAIN JAMESONS [facility] Aug 07, 2023 09:30 AM AMBULATORY - NONE BRYANNA PIERCE [facility] September 03, 2023 08:00 AM AMBULATORY - SURGERY [facility] Oct 14, 2023 10:00 AM AMBULATORY - SURGERY [facility] Social History: Smoking Status (Most current) and Tobacco Use (All prior to encounter date) This section includes the most current, and the historical, smoking and tobacco- related health factors from the [place] facility where the Encounter took place. Current Smoking Status This section includes the most current smoking, or tobacco-related health factor, from the [place] facility where the Encounter took place. Date/Time Current Smoking Status Comment Khloe itnitesh Apr 10, 2022 03:17 PM VA-TOBACCO USER EVERY DAY [facility] Tobacco Use History This section includes a history of the smoking, or tobacco-related health factors, that were collected on or before the date of the Encounter. The data comes from the [place] facility where the Encounter took place. Date/Time Smoking Status/Tobacco Use Comment F acility Apr 10, 2022 03:17 PM VA-TOBACCO USE ADVICE [facility] Apr 10, 2022 03:17 PM VA-TOBACCO USE NURSING INFORMATICS CLINICAL ANALYST NO [facility] Apr 10, 2022 03:17 PM VA-TOBACCO USE MED NO [facility] Apr 10, 2022 03:17 PM VA-TOBACCO USE WI 30 MIN OF WAKE UP [facility] Apr 10, 2022 03:17 PM VA-TOBACCO USER EVERY DAY [facility] Mar 21, 2021 02:26 PM VA-TOBACCO USE 30 YEARS OR MORE [facility] Mar 21, 2021 02:26 PM VA-TOBACCO USE ADVICE [facility] Mar 21, 2021 02:26 PM VA-TOBACCO USE NURSING INFORMATICS CLINICAL ANALYST NO [facility] Mar 21, 2021 02:26 PM VA-TOBACCO USE MED NO [facility] Mar 21, 2021 02:26 PM VA-TOBACCO USE WI 30 MIN OF WAKE UP [facility] Mar 21, 2021 02:26 PM VA-TOBACCO USER EVERY DAY [facility] Dec 03, 2018 11:04 AM VA-TOBACCO DOESNT USE WI 30 MIN WAKEUP [facility] Dec 03, 2018 11:04 AM VA-TOBACCO USE 30 YEARS OR MORE [facility] Dec 03, 2018 11:04 AM VA-TOBACCO USE ADVICE [facility] Dec 03, 2018 11:04 AM VA-TOBACCO USE NURSING INFORMATICS CLINICAL ANALYST YES [facility] Dec 03, 2018 11:04 AM VA-TOBACCO USE MED YES [facility] Dec 03, 2018 11:04 AM VA-TOBACCO USER EVERY DAY [facility] Apr 21, 2018 12:15 PM VA-TOBACCO USE ADVICE [facility] September 10, 2017 08:58 AM CURRENT TOBACCO USER [facility] Sep 18, 2016 10:12 AM CURRENT TOBACCO USER [facility] Jul 24, 2015 09:40 AM CURRENT TOBACCO USER [facility] Aug 04, 2014 08:53 AM CURRENT TOBACCO USER [facility] August 31, 2013 02:07 PM CURRENT TOBACCO USER [facility] Sep 30, 2011 08:40 AM CURRENT TOBACCO USER [facility] Radiology Reports: +/- 30 days of the encounter Radiology Reports For cases when an order for radiology services may have been completed prior to the date of the Encounter, the report list includes the Radiology Reports that were completed up to 30 days before dateof the Encounter. For cases when an order for radiology services may have been completed after the date of the Encounter, the report list also includes the Radiology Reports that were completed up to30 days after date of the Encounter. The data comes from all [facility] facilities. Date/Time Radiology Report Provider Source May 18, 2023 09:45 AM LDCT INCIDENTAL PU LMONARY NODULE: [place] [id number] M Ex Date: MAY 18, 2023@09:45 Req Phys: BUZZ STAHL Loc: [facility] PULM CHART CHECK LNT (Req' Img Loc: CT IMAGING Service: Unknown (Case [id number] COMPLETE) LDCT INCIDENTAL PULMONARY NODULE (CT Detailed) CPT:97363 Proc Modifiers : LOW DOSE PROTOCOL Reason for Study: Low Dose CT F/U Nodule Clinical History: IS NOT under investigation for COVID-19 or is COVID-19 negative follow up lung nodule; pt with hx of prostate cancer - no therapy and no rountine cancer surveillance. Responsible provider name and phone number to notify for critical findings if other than user placing the order and pager listed below: User placing orders pager: LAST 3: Collection DT Specimen Test Name Result Units Ref Range 05/20/2022 11:24 PLASMA CREATININE 1.0 mg/dL 0.7 - 1.2 08/23/2021 08:16 PLASMA CREATININE 1.1 mg/dL 0.7 - 1.2 03/22/2021 07:15 PLASMA CREATININE 1.1 mg/dL 0.7 - 1.2 05/20/2022 11:24 PLASMA CREAT EGFR(CKD-EP 78 Ref: >=60 08/23/2021 08:16 PLASMA CREAT EGFR(CKD-EP 70 Ref: >=60 03/22/2021 07:15 PLASMA ESTIMATED GFR(eGF >60 Ref: >=60 08/14/2020 08:44 PLASMA ESTIMATED GFR(eGF 59 L Ref: >=60 02/16/2020 07:50 PLASMA ESTIMATED GFR(eGF 59 L Ref: >=60 Allergies: No data available for: .BERMUDA GRASS IGE .ORCHARD GRASS IGE .RED TOP GRASS IGE .COMMON RAGWEED IGE .GIANT RAGWEED IGE .ROUGH MAR ELDER IGE .MAPLE BOX ELDER,IGE .BIRCH IGE .OAK IGE .ELM IGE .CAT DANDER IGE .DOG DANDER IGE .CLAD HERBARUM IGE .ASPER FUMIGATUS IGE .ALTER ALTERNATA IGE .H DUST(H-ST) IGE .D.PTERONYSSINUS IGE .COCKROACH IGE Report Status: Verified Date Reported: MAY 18, 2023 Date Verified: MAY 18, 2023 Leather Carver E-Sig:/ES/ROBERTH NEAL MD Report: EXAM: Non-Contrast Low-Dose CT Chest for Incidentally Detected Pulmonary Nodules, 05/18/2023 HISTORY: 77-year-old male with several pulmonary nodules in the setting of untreated prostate carcinoma and pulmonary granulomatous disease (PSA of 60 with previously noted nodules). Example nodules include: - 7 mm stable nodule right lower lobe - 6 mm solid nodule left subpleural, slightly decreased COMPARISON: 01/22/2023, 05/20/2022, 10/31/2021, TECHNIQUE: Low dose CT chest without IV contrast. Axial and coronal images were obtained. DOSE: DLP: 21.45, mGy*cm/CTDIvol Mean: 0.51, mGy FINDINGS: Pulmonary nodules: Redemonstration of multiple bilateral solid pulmonary nodules, without significant change from 01/22/2023. Index Pulmonary Nodule: Average diameter: 7 mm, 10 x 6 x 6 mm, mean 7 mm Density: Solid nodule Location: Central posterior right lower lobe Image: Series 3 Image 213 Suspicious features: None Other characteristics: Perivascular Change in diameter: None Number of nodules on current exam: > or = 6 nodules Size Stratification: At least one 6 mm but < 8 mm Other Pulmonary Nodules: Numerous additional small pulmonary nodules, without change, examples including (series 3): 3 mm anterior medial lingula, image 183. 3.5 x 3 mm posterior lateral periphery right upper lobe, image 184 8 x 4 mm posterior central mid left lower lobe pleural-based, image 2024 3.5 mm anterior right lower lobe, perinephric fissural, image 259 Other lung findings: No infiltrates, or effusion. Moderate upper lobe predominant centrilobular emphysema. Biapical pleural scar, with some calcification. Subpleural bullous change in both lung apices. Small lobularity anterior right mid trachea, inspissated mucus. Tracheobronchial tree clear. Mild interstitial changes at both lung bases. Pleura: No pleural-based calcifications. Mediastinum: Heart size normal. No pericardial effusion. Ascending aorta 3.5 cm. Standard great vessel branching pattern. At least moderate calcification the coronary arteries, LAD distribution. Main pulmonary artery 2.3 cm. No adenopathy. Visualized thyroid unremarkable. No adenopathy. No hernia. Upper abdomen: Vascular: Partial visualization of the infrarenal abdominal aortic aneurysm, estimating at least 3.6 cm maximum. Last ultrasound screening 01/22/2023, correlated with CT same day. Liver: Partially imaged, without suspect mass. Gallbladder: Minimally imaged. Spleen: Normal in size, 8.2 cm. Adrenals: Minimal nodularity of the posterior left adrenal, unchanged, fluid density, adenomatous change. Unremarkable right adrenal. Superior kidneys: Low-attenuation areas within the superior kidneys, largest 2.3 cm posterior central left renal cortex, 2.2 cm lateral right renal cortex, consistent with cysts, better seen on CT 01/22/2023. Pancreas: Coarse calcification pancreatic neck which may reflect prior pancreatitis. Mild parenchymal loss. Head incompletely imaged. Bowel: Imaged bowel unremarkable. Nodes: No adenopathy. Ascites: None. Bone soft tissues: Multilevel moderate to advanced lower cervical and moderate thoracic degenerative disc disease. Moderate degenerative changes of both shoulders. Impression: 1. Multiple stable solid pulmonary nodules bilaterally, index nodule 7 mm mean within the central posterior perivascular right lower lobe, not substantially changed since 10/31/2021. No new nodules.. Follow up per Fleischner Society 2017 guidelines. 2. stable moderate upper lobe predominant centrilobular emphysema. 3. Biapical chronic pleural-based scar and apical bullous change. 4. At least moderate calcification the coronary arteries, LAD distribution. 5. Partial visualization of known infrarenal abdominal aortic aneurysm, the imaged portion measuring up to 3.6 cm. Last evaluation 01/22/2023. 6. Bilateral renal cortical cysts, better visualized on CT 10/31/2021. 7. Features of chronic pancreatitis. . Primary Interpreting Staff: ROBERTH NEAL MD, RADIOLOGIST (Leather Carver) /ROBERTH [facility] Encounter Notes: All associated encounter notes This section contains the clinical notes associated to the Encounter. Date/Time Encounter Note(s) Provider Source May 21, 2023 08:27 AM LETTERS: LOCAL TITLE: FOLLOW UP RESULTS LETTER STANDARD TITLE: LETTERS DATE OF NOTE: MAY 21, 2023@08:27 ENTRY DATE: MAY 21, 2023@08:27:10 AUTHOR: FLAKITO GUADARRAMA EXP COSIGNER: URGENCY: STATUS: COMPLETED [facility] [address] [place] [address] May [place] [address] [facility] [address] [place] [id number] Dear [place]: Your recent chest imaging on May showed: no significant change in your lung nodule(s) since your last scan. *THIS IS IMPORTANT: Your next CT scan should be scheduled for 12 months from the date of your last scan. You will receive a recall letter six weeks before your CT scan is due asking you to call to schedule the appointment. If you are scheduled for a scan in the future and you have symptoms of a chest cold at that time, please call number on appointment letter to reschedule for four weeks after symptoms improve. If you have any further questions or problems, please contact Lung Nodule Tracking staff at [phone]. FLAKITO GUADARRAMA RN PULMONARY AIRLINE CUSTOMER SERVICE AGENT FLAKITO GUADARRAMA [facility] May 21, 2023 08:24 AM PULMONARY NOTE: LOCAL TITLE: PULMONARY LUNG NODULE NOTE STANDARD TITLE: PULMONARY NOTE DATE OF NOTE: MAY 21, 2023@08:24 ENTRY DATE: MAY 21, 2023@08:24:25 AUTHOR: FLAKITO GUADARRAMA COSIGNER: URGENCY: STATUS: COMPLETED Lung Nodule Registry Follow Up: Date of initial imaging exam: V23 Lung Nodule Registry 10/31/2021 Lnr Initial Image Date Date of current follow up image: May 18, 2023 The patient will be tracked by the [facility]. Patient risk level: High Nodule density: Solid Nodule border: Regular/smooth Location of largest nodule: Right Lower Lobe Behavior: Stable (<1.5mm change in diameter). Next CT is recommended in 12 months.Per Henkle recs - If stable at that time can discontinue active follow up. Results letter sent to patient. /kasi/ FLAKITO GUADARRAMA RN PULMONARY AIRLINE CUSTOMER SERVICE AGENT Signed: 05/21/2023 08:26 FLAKITO GUADARRAMA [facility]
--- OUTSIDE RECORDS SUMMARY | 2023-11-11 09:04 | XMS_ITS | Encounter Summary ---
Author Name [facility] Organization [facility] Address [address] [place] [address] Care Team Providers Care Toolmaker Grade Three Name Role Phone DENY MEANS Primary Care [...] PART A Oct 12, 2011 PART A [id number] [place] PATIENT Selected Encounter This section includes the information on record at [place] for the Encounter. Date/Time Encounter Type Encounter Description Reason Provider Source September 03, 2023 08:00 AM CLEAN/INSPECT DEANNA PART DENT DENTAL ICD-10-CM K02.62 Dental caries on smooth surface penetrating into dentin SHARON BROWNLEE Encounter Template Text not used by [place] Assessments - Encounter Diagnoses This section includes the primary and secondary diagnoses documented for the Encounter. Date/Time Primary/Secondary Diagnosis Diagnosis Name Provider Source September 03, 2023 08:40 AM PRIMARY Dental caries on smooth surface penetrating into dentin SHARON BROWNLEE [facility] September 03, 2023 08:40 AM SECONDARY Aggressive periodontitis, localized, slight WESHARON Boss [facility] September 03, 2023 08:40 AM SECONDARY Partial loss of teeth due to caries, class IV VAKarynSHARON [facility] Plan of Treatment: Future Appointments (+ 6 months) and Future Tests (+/- 45 days) The Plan of Treatment section includes future care activities for the patient from all [place] [facility] This section includes future appointments and future orders which are active, pending or scheduled. Future Appointments This section includes appointments that were scheduled to occur 6 months from the date of the Encounter, up to a maximum of 20 appointments. The data comes from all [facility] facilities. Appointment Date/Time Appointment Type Appointme nt Facility Name Oct 14, 2023 10:00 AM AMBULATORY - SURGERY [facility] Vital Signs: All taken on the encounter date This section contains inpatient and outpatient Vital Signs collected on the date of the Encounter. Date/Time Temperature Pulse Blood Pressure Respiratory Rate SP02 Pain Height Weight Body Mass Index Source September 03, 2023 08:40 AM 97.7 47 155/82 [facility] Social History: Smoking Status (Most current) and Tobacco Use (All prior to encounter date) This section includes the most current, and the historical, smoking and tobacco- related health factors from the [place] facility where the Encounter took place. Current Smoking Status This section includes the most current smoking, or tobacco-related health factor, from the [place] facility where the Encounter took place. Date/Time Current Smoking Status Comment Khloe ity Jun 25, 2023 10:30 AM VA-TOBACCO USER EVERY DAY [facility] Tobacco Use History This section includes a history of the smoking, or tobacco-related health factors, that were collected on or before the date of the Encounter. The data comes from the [place] facility where the Encounter took place. Date/Time Smoking Status/Tobacco Use Comment F acility Jun 25, 2023 10:30 AM VA-TOBACCO USE ADVICE [facility] Jun 25, 2023 10:30 AM VA-TOBACCO USE FIBERGLASS AUTO BODY REPAIRER NO [facility] Jun 25, 2023 10:30 AM VA-TOBACCO USE MED NO [facility] Jun 25, 2023 10:30 AM VA-TOBACCO USE WI 30 MIN OF WAKE UP [facility] Jun 25, 2023 10:30 AM VA-TOBACCO USER EVERY DAY [facility] Apr 10, 2022 03:17 PM VA-TOBACCO USE 30 YEARS OR MORE [facility] Apr 10, 2022 03:17 PM VA-TOBACCO USE ADVICE [facility] Apr 10, 2022 03:17 PM VA-TOBACCO USE FIBERGLASS AUTO BODY REPAIRER NO [facility] Apr 10, 2022 03:17 PM VA-TOBACCO USE MED NO [facility] Apr 10, 2022 03:17 PM VA-TOBACCO USE WI 30 MIN OF WAKE UP [facility] Apr 10, 2022 03:17 PM VA-TOBACCO USER EVERY DAY [facility] Mar 21, 2021 02:26 PM VA-TOBACCO USE 30 YEARS OR MORE [facility] Mar 21, 2021 02:26 PM VA-TOBACCO USE ADVICE [facility] Mar 21, 2021 02:26 PM VA-TOBACCO USE FIBERGLASS AUTO BODY REPAIRER NO [facility] Mar 21, 2021 02:26 PM VA-TOBACCO USE MED NO [facility] Mar 21, 2021 02:26 PM VA-TOBACCO USE WI 30 MIN OF WAKE UP [facility] Mar 21, 2021 02:26 PM VA-TOBACCO USER EVERY DAY [facility] Dec 03, 2018 11:04 AM VA-TOBACCO DOESNT USE WI 30 MIN WAKEUP [facility] Dec 03, 2018 11:04 AM VA-TOBACCO USE 30 YEARS OR MORE [facility] Dec 03, 2018 11:04 AM VA-TOBACCO USE ADVICE [facility] Dec 03, 2018 11:04 AM VA-TOBACCO USE FIBERGLASS AUTO BODY REPAIRER YES [facility] Dec 03, 2018 11:04 AM VA-TOBACCO USE MED YES [facility] Dec 03, 2018 11:04 AM VA-TOBACCO USER EVERY DAY [facility] Apr 21, 2018 12:15 PM VA-TOBACCO USE ADVICE [facility] September 10, 2017 08:58 AM CURRENT TOBACCO USER [facility] Sep 18, 2016 10:12 AM CURRENT TOBACCO USER [facility] Jul 24, 2015 09:40 AM CURRENT TOBACCO USER [facility] Aug 04, 2014 08:53 AM CURRENT TOBACCO USER [facility] August 31, 2013 02:07 PM CURRENT TOBACCO USER [facility] Sep 30, 2011 08:40 AM CURRENT TOBACCO USER [facility] Radiology Reports: +/- 30 days of the [...] the Encounter. The data comes from all [facility] facilities. Date/Time Radiology Report Provider Source Aug 07, 2023 09:01 AM US AORTA (P): [place] [id number] -1945 M Exm Date: AUG 07, 2023@09:01 Req Phys: DENY MEANS Loc: [facility] PULM CHART CHECK LNT (Req' Img Loc: Ultrasound Imaging Service: Unknown (Case [id number] COMPLETE) US RETROPERITONEAL LIMITED (US Detailed) CPT:32640 Reason for Study: AAA f/u Clinical History: IS NOT under investigation for COVID-19 or is COVID-19 negative AAA f/u 4.0 cm Responsible provider name and phone number to notify for critical findings if other than user placing the order and pager listed below: User placing orders pager: [phone], 1911 LAST CREATININE 1.1 (12/05/22) Report Status: Verified Date Reported: AUG 07, 2023 Date Verified: AUG 07, 2023 Control Area Operator E-Sig:/ES/DEBBIE ERAZO MD Report: Abdominal Aorta Ultrasound Examination (follow-up) Comparison study: 01/22/2023 History: Reason for Study: AAA f/u Findings: AP measurements obtained on the longitudinal images Transverse measurements obtained on the transverse images Proximal (suprarenal): 3.0 cm x 2.6 cm, previously measuring 3.0 x 2.7 cm Mid (infrarenal): 2.7 cm x 2.4 cm, previously measuring 2.7 x 2.4 cm Distal: 4.0 cm x 4.3 cm, previously measuring 4.0 x 4.0 cm Right LYNDON: 1.4 cm, previously measuring 1.4 cm Left LYNDON: 1.2 cm, previously measuring 1.2 cm Impression: 1. Maximum infrarenal aortic diameter is 4.3 cm, previously 4.0 cm. This is aneurysmal. 2. Maximum right LYNDON diameter is 1.4 cm, previously 1.4 cm. This is not aneurysmal. 3. Maximum left LYNDON diameter is 1.2 cm, previously 1.2 cm. This is not aneurysmal. THE REPORT OF THE PATIENT'S FINDINGS ENDS HERE. Recommendations from the [place] Vascular Surgery Department, updated 2023: Small infrarenal abdominal aortic aneurysms (AAA), less than 5.0 cm in diameter, should be followed by the primary provider until the aneurysm reaches 5.0 cm. AAA 3.0 cm - 3.9 cm Ultrasound every 3 years AAA 4.0 cm - 4.9 cm Ultrasound every 1 year AAA 5.0 cm or greater, CTA with contrast and vascular consult Iliac artery aneurysms: Iliac aneurysms should be followed by the primary provider until they reach 3.5 cm. Iliac aneurysm - < 3.0 cm ultrasound every 12 months Iliac aneurysm - 3.0 - 3.5 cm ultrasound every 6 months Iliac aneurysm - 3.5 cm or greater, CTA with contrast and refer to Vascular Surgery * Ascending thoracic aortic aneurysms are managed by cardiothoracic surgery * The presence of thrombus in the aneurysm is expected and does not change the recommendations I, Debbie Erazo, have reviewed the images and report. Primary Interpreting Staff: DEBBIE ERAZO MD, RADIOLOGIST (Control Area Operator) Primary Interpreting Resident: EB GRANADO MD, HAND SILVERING SUPERVISOR /DEBBIE DOS SANTOS [facility] Encounter Notes: All associated encounter notes This section contains the clinical notes associated to the Encounter. Date/Time Encounter Note(s) Provider Source September 03, 2023 08:35 AM MANDI Hodges NOTE: LOCAL TITLE: Dental Clinic Examination Note STANDARD TITLE: DENTISTRY ATTENDING NOTE DATE OF NOTE: SEPTEMBER 03, 2023@08:35 ENTRY DATE: SEPTEMBER 03, 2023@08:40:06 AUTHOR: SHARON BROWNLEE EXP COSIGNER: URGENCY: STATUS: COMPLETED Patient Name: [place], : 1945, Age: 77 Visit: S: September 03, 2023@08:00 [facility] DENTAL KEM. Primary PCE Diagnosis: K02.62 (Dental caries on smooth surface penetrating into dentin). Dental Category: 15-OPC, Class IV. Treatment Status: Maintenance. Dental Examination: Missing Teeth: 1, 2, 3, 4, 7, 8, 9, 10, 12, 13, 14, 15, 16, 17, 18, 19, 20, 28, 30, 31, 32. Existing Dental Restorations: Restored: 23(M) Amalgam, 26(D) Amalgam, 27(M) Amalgam. Completed Care: (D2391) POST 1 [facility] RESINBASED CMPST. Tooth: 21. Surface(s): O. DX: K02.62 Dental Caries on Smooth Surface Penetrating into Dentin (D4342) PERIODONTAL SCALING 1-3TEETH. Tooth: LL. Quadrant: LL. DX: K05.211 Aggressive periodontitis, localized, slight (D9934) CLEAN/INSPECT MAX PART DENT. DX: K08.434 Partial Loss of Teeth due to Caries, Class IV (D9935) CLEAN/INSPECT DEANNA PART DENT. DX: K08.434 Partial Loss of Teeth due to Caries, Class IV - - - - - - - - - - - - - - - - - - - - - - - - - - - - - - Verified patient's ID with name and SSN. Patient consented to the procedures to be done today. Dental instruments verified sterile with dental child and youth program assistant: Porsha. SUBJECTIVE: Patient here for restorative care on #21(O) Vitals obtained and entered in CPRS. OBJECTIVE: Calculus around #24 - 1:1 crown root ratio with mobility II. #21(O) minimal caries on the occlusal PROCEDURE: Explained the procedures necessary to complete todays appt. Patient has no questions and consents to care. Clean adn inspect upper and lower partial. No concerns. Scaling around #24 - remove calculus and plaque. Removed caries #21(O) and etch with 30% phosphoric acide for 20 sec. Rinse and dry. Placed farm agent and light cure for 20 sec. A2 shade flowable composite placed and cured for 60 sec. Check occlusion - no concerns. Smoothen composite on the buccal of #20 and #21. ASSESSMENT: Patient tolerated the procedure well. PLAN: [place]: Periodonic recall - 6 months. /kasi/ SHARON BROWNLEE DDS STAFF DENTIST Signed: 09/03/2023 08:40 SHARON BROWNLEE [facility]
--- OUTSIDE RECORDS SUMMARY | 2023-11-11 09:04 | XMS_ITS | Clinical Summary ---
Author Organization [facility] Address [place], [place] [address] Care Team Providers Care Express Manager Name Role Phone Soraya Bird MD Primary Care Provide r Allergies No known active allergies Medications No known medications Active Problems Problem Noted Date Diagnosed Date Prostate cancer 02/21/2011 Colon polyp 11/26/2010 Overview: Colonoscopy 11/2010 polyp repeat in 5 years BPPV (benign paroxysmal positional vertigo) 10/12 Inguinal hernia 11/08/2010 Near-syncope 04/24/2009 Hyperlipidemia 04/24/2009 Tobacco abuse 04/19/2009 Resolved Problems Problem Noted Date Diagnosed Date Resolved Date Elevated prostate specific antigen (PSA) 11/22/2010 02/21/2011 Immunizations Name Administration Dates Next Due Tdap 11/07/2010 Family History Medical History Relation Name Comments Heart Disease Brother CAbg x 3 Heart Disease Father Diabetes Mother Thyroid Disease Sister Relation Name Status Comments Brother Father (Age 82) Mother (Age 96) Sister Social History Tobacco Use Types Packs/Day Years Used Date Smoking Tobacco: Every Day Cigarettes Smokeless Tobacco: Never Alcohol Use Standard Drinks/Week Comments Yes 0 (1 standard drink = 0.6 oz pur e alcohol) occ Sex and Gender Information Value Date Recorded Sex Assigned at Not on file Gender Identity Not on file Sexual Orientation Not on file Obstetrics History Last Filed Vital Signs Vital Sign Reading Time Taken Comments Blood Pressure 147/84 05/27/2011 1:30 PM TEST ENGINE OPERATOR Pulse 73 05/27/2011 1:30 PM TEST ENGINE OPERATOR Temperature 36.7 ??C (98 ??F) 04/15/2011 3:24 PM TEST ENGINE OPERATOR Respiratory Rate - - Oxygen Saturation 98% 11/22/2010 11: 51 AM CDT Inhaled Oxygen Concentration - - Weight 67.9 kg (149 lb 11.2 oz) 05/27/2011 1:30 PM TEST ENGINE OPERATOR Height 174.6 cm (5' 8.75) 11/07/2010 3:42 PM CD T Body Mass Index 22.27 11/07/2010 3:42 PM CDT Plan of Treatment Health Maintenance Due Date Last Done Comments Depression screening for age 12+ 1958 BMI (ht and wt on same day) for age 18+ 1964 Hepatitis C screening for age 18-79 1964 Zoster (shingles) series for age 50+ (1 of 2) 10/18/18 97 Pneumococcal series for age 65+ (1 of 1 - PCV) 012 Tetanus booster 11/07/2020 11/07/2010 COVID-19 vaccine series (1 - 2022- season) 3 Influenza for age 65+ 12/13/2023 Tdap Completed 11/07/2010 Care Teams Express Manager Relationship Specialty Start Date End Date Soraya Bird MD [address] [place] [address] PCP - General 04/10/09
--- OUTSIDE RECORDS SUMMARY | 2023-11-11 09:04 | XMS_ITS | Encounter Summary ---
Author Name [facility] [place] [facility] [place] Address [address] [place] [address] Care Team Providers Care Film Sound Engineer Name Role Phone DENY MEANS Primary Care [...] PART A Oct 12, 2011 PART A [id number] [place] PATIENT Selected Encounter This section includes the information on record at [place] for the Encounter. Date/Time Encounter Type Encounter Description Reason Provider Source Jan 23, 2023 09:03 AM Outpatient Encounter ADMIN PAT ACTIVTIES (MASNONCT) PRADEEP TEJADA Encounter Template Text not used by [place] Plan of Treatment: Future Appointments (+ 6 months) and Future Tests (+/- 45 days) The Plan of Treatment section includes future care activities for the patient from all [place] treatmentfacilities. This section includes future appointments and future orders which are active, pending or scheduled. Future Appointments This section includes appointments that were scheduled to occur 6 months from the date of the Encounter, up to a maximum of 20 appointments. The data comes from all [place] treatment facilities. Appointment Date/Time Appointment Type Appointme nt Facility Name May 18, 2023 10:00 AM AMBULATORY - NONE BRYANNA PIERCE [facility] Jun 25, 2023 09:30 AM AMBULATORY - NONE BRYANNA PIERCE [facility] Jun 25, 2023 10:30 AM AMBULATORY - MEDICINE HEMANT MARTINES [facility] Jul 23, 2023 10:30 AM AMBULATORY - SURGERY JERMAIN ROMO [facility] Jul 23, 2023 10:31 AM AMBULATORY - SURGERY [facility] Lab Results: +/- 30 days of the encounter This section includes the Chemistry and Hematology Lab Results on record with [place] for the patient. Radiology Reports and Pathology Reports are provided separately, in subsequent sections. Lab Results This section contains the Chemistry/Hematology Results that were resulted 30 days before or 30 daysafter the date of the Encounter. Date/Time Source Result Type Result - Unit Interpretation Reference Range Comment Jan 22, 2023 09:38 AM [facility] POC CREATININE Specimen Type: BLOOD No comment entered. Ordering Provider: CHELSEY MEANS Report Released Date/Time: Jan 22, 2023 09:42 AM Reporting Lab: [facility] [id number] Performing Lab: [facility] [id number] POC CREATININE 1.1 mg/dL 0.6-1.3 Social History: Smoking Status (Most current) and Tobacco Use (All prior to encounter date) This section includes the most current, and the historical, smoking and tobacco- related health factors from the [facility] where the Encounter took place. Current Smoking Status This section includes the most current smoking, or tobacco-related health factor, from the [place] facility where the Encounter took place. Date/Time Current Smoking Status Comment Khloe itnitesh Apr 10, 2022 03:17 PM VA-TOBACCO USER EVERY DAY [facility] Tobacco Use History This section includes a history of the smoking, or tobacco-related health factors, that were collected on or before the date of the Encounter. The data comes from the [place] facility where the Encounter took place. Date/Time Smoking Status/Tobacco Use Comment F acility Apr 10, 2022 03:17 PM VA-TOBACCO USE ADVICE [facility] Apr 10, 2022 03:17 PM VA-TOBACCO USE FINANCE EFFECTIVENESS MANAGER NO [facility] Apr 10, 2022 03:17 PM VA-TOBACCO USE MED NO [facility] Apr 10, 2022 03:17 PM VA-TOBACCO USE WI 30 MIN OF WAKE UP [facility] Apr 10, 2022 03:17 PM VA-TOBACCO USER EVERY DAY [facility] Mar 21, 2021 02:26 PM VA-TOBACCO USE 30 YEARS OR MORE [facility] Mar 21, 2021 02:26 PM VA-TOBACCO USE ADVICE [facility] Mar 21, 2021 02:26 PM VA-TOBACCO USE FINANCE EFFECTIVENESS MANAGER NO [facility] Mar 21, 2021 02:26 PM VA-TOBACCO USE MED NO [facility] Mar 21, 2021 02:26 PM VA-TOBACCO USE WI 30 MIN OF WAKE UP [facility] Mar 21, 2021 02:26 PM VA-TOBACCO USER EVERY DAY [facility] Dec 03, 2018 11:04 AM VA-TOBACCO DOESNT USE WI 30 MIN WAKEUP [facility] Dec 03, 2018 11:04 AM VA-TOBACCO USE 30 YEARS OR MORE [facility] Dec 03, 2018 11:04 AM VA-TOBACCO USE ADVICE [facility] Dec 03, 2018 11:04 AM VA-TOBACCO USE FINANCE EFFECTIVENESS MANAGER YES [facility] Dec 03, 2018 11:04 AM VA-TOBACCO USE MED YES [facility] Dec 03, 2018 11:04 AM VA-TOBACCO USER EVERY DAY [facility] Apr 21, 2018 12:15 PM VA-TOBACCO USE ADVICE [facility] September 10, 2017 08:58 AM CURRENT TOBACCO USER [facility] Sep 18, 2016 10:12 AM CURRENT TOBACCO USER [facility] Jul 24, 2015 09:40 AM CURRENT TOBACCO USER [facility] Aug 04, 2014 08:53 AM CURRENT TOBACCO USER [facility] August 31, 2013 02:07 PM CURRENT TOBACCO USER [facility] Sep 30, 2011 08:40 AM CURRENT TOBACCO USER [facility] Radiology Reports: +/- 30 days of [...] the Encounter. The data comes from all [facility] facilities. Date/Time Radiology Report Provider Source Jan 22, 2023 10:[address] (CAP) CHEST/ABD /PELVIS (P): [place] [id number] -1945 M Exm Date: JAN 22, 2023@10:00 Req Phys: DENY MEANS Pat Loc: [facility] PACT [facility] WH 4D (Req'g Loc Img Loc: CT IMAGING Service: Unknown (Case [id number] COMPLETE) CT (CAP) CHEST W CONTRAST (CT Detailed) CPT:16244 Contrast Media : Non-ionic Iodinated Reason for Study: untreated prostate cancer PSA 60, w/ prev noted lung nodules (Case [id number] COMPLETE) CT (CAP) ABDOMEN/PELVIS W CONTRAS(CT Detailed) CPT:13570 Contrast Media : Non-ionic Iodinated Clinical History: Per Joint Commission Standards, by signing this diagnostic imaging request the ordering provider confirms they have considered patients age and recent imaging history. Defer to radiologist for final CT protocol. Responsible provider name and phone number to notify for critical findings if other than user placing the order and pager listed below: User placing orders pager: [phone], [phone] LAST 3: Collection DT Specimen Test Name Result Units Ref Range 12/05/2022 12:00 PLASMA CREATININE 1.1 mg/dL 0.7 - 1.2 05/20/2022 11:24 PLASMA CREATININE 1.0 mg/dL 0.7 - 1.2 08/23/2021 08:16 PLASMA CREATININE 1.1 mg/dL 0.7 - 1.2 12/05/2022 12:00 PLASMA .CREAT EGFR(CKD-E 70 Ref: >=60 05/20/2022 11:24 PLASMA .CREAT EGFR(CKD-E 78 Ref: >=60 08/23/2021 08:16 PLASMA .CREAT EGFR(CKD-E 70 Ref: >=60 03/22/2021 07:15 PLASMA ESTIMATED GFR(eGF >60 Ref: >=60 08/14/2020 08:44 PLASMA ESTIMATED GFR(eGF 59 L Ref: >=60 02/16/2020 07:50 PLASMA ESTIMATED GFR(eGF 59 L Ref: >=60 Allergies: ([place] only) Patient has answered NKA Report Status: Verified Date Reported: JAN 22, 2023 Date Verified: JAN 22, 2023 Carbon Plant Grinder E-Sig:/ES/JOSEP KIMBALL MD Report: EXAM: CT chest, abdomen and pelvis with intravenous contrast. HISTORY: Untreated prostate cancer, PSA 60 with previously noted pulmonary nodules TECHNIQUE: Helical acquisition of image data was performed for the chest, abdomen and pelvis with the administration of 72 mL Omnipaque intravenous contrast. Multiplanar reconstructions were obtained. MIP and vessel suppression requisitions were generated. Computer-aided detection was used to evaluate pulmonary nodules Dose: 454 mGy*cm COMPARISON: CT 10/31/2021, , 05/20/2022. FINDINGS: SURGICAL TECHNICIAN: Unrevealing \H\Prostate: \N\Prostate measures 5.3 cm in the transverse plane. Intraprostatic calcifications. Nonspecific heterogenous prostate enhancement. \H\Pulmonary nodules: \N\Right lower lobe 7 mm solid pulmonary nodule is unchanged (series 3 image 217). Left subpleural posterior lower lobe 6 mm solid pulmonary nodule is decreased in size from prior (series 3 image 228). Multiple calcified and noncalcified sub-6 mm solid pulmonary nodules are unchanged. Lower neck: Small left-sided low attenuation thyroid nodule. Chest/Mediastinum: The heart is not enlarged. Coronary artery and aortic calcifications. No pericardial effusion. Esophagus appears unremarkable. Prominent axillary lymph nodes are stable. No enlarged mediastinal lymph nodes by short axis criteria. Evaluation of the renee is limited by lack of intravenous contrast, however no bulky hilar adenopathy is appreciated. Pleura/Lung parenchyma: Bilateral apical blebs. Emphysematous changes. Bibasilar atelectasis. Bilateral groundglass opacities have resolved. LIVER: No intrahepatic biliary dilation. No focal hepatic mass. GALLBLADDER/BILIARY TREE: The common bile duct is not dilated. The gallbladder appears unremarkable. SPLEEN: The spleen is not enlarged. PANCREAS: The pancreatic duct is not dilated. ADRENAL GLANDS: No adrenal nodules KIDNEYS/URETERS: Bilateral benign-appearing renal cysts which are similar to prior. Bilateral small nonobstructive calculi. There is no hydronephrosis. BLADDER/PELVIC ORGANS: Bladder is normal. BOWEL/MESENTERY: Mild dilation of the duodenum without a transition point or obstructing mass. No bowel wall thickening or masses. The appendix is unremarkable. PERITONEUM/RETROPERITONEUM: No extraluminal bowel gas. No free fluid in the abdomen or pelvis. LYMPH NODES: Prominent periaortic lymph nodes are stable from prior. No enlarged abdominal or pelvic lymph nodes by short axis criteria. MAJOR VESSELS: Partially thrombosed abdominal aortic aneurysm measuring 4.2 cm in the anterior posterior dimension (series 6 image 104), similar to prior. Atherosclerotic calcifications in the abdomen and pelvis. BONE AND SOFT TISSUE: Benign-appearing sclerotic foci within the pelvis and hips is unchanged from prior. Mild degenerative changes of spine. No suspicious osseous or soft tissue lesions. Impression: 1. No evidence of disease progression or metastasis. Prostate continues to be heterogenous enhancing, though the prostate is suboptimally assessed by CT. 2. Pulmonary nodules as above are stable. 3. Infrarenal aortic aneurysm, similar to prior. 4. Other findings, as described. I, Josep Kimball, have reviewed the images and report. Primary Interpreting Staff: JOSEP KIMBALL MD, STAFF RADIOLOGIST (Carbon Plant Grinder) Primary Interpreting Resident: Mark CAMILO, CONTENT DESIGNER /ADP JOSEP KIMBALL [facility] Jan 22, 2023 08:56 AM US AORTA (P): [place] [id number] -1945 M Exm Date: JAN 22, 2023@08:56 Req Phys: DENY MEANS Loc: [facility] ULTRASOUND AM (Req'g Loc) Img Loc: Ultrasound Imaging Service: Unknown (Case [id number] COMPLETE) US RETROPERITONEAL LIMITED (US Detailed) CPT:32134 Reason for Study: AAA f/u Clinical History: [place] IS NOT under investigation for COVID-19 or is COVID-19 negative 6 mo follow up for 4.0 cm AAA Responsible provider name and phone number to notify for critical findings if other than user placing the order and pager listed below: User placing orders pager: [phone], [phone] LAST CREATININE 1.0 (05/20/22) Report Status: Verified Date Reported: JAN 22, 2023 Date Verified: JAN 22, 2023 Carbon Plant Grinder E-Sig:/ES/NATHANAEL DAVIS MD Report: Abdominal Aorta Ultrasound Examination (follow-up) Comparison study: 06/30/2022 History: AAA f/u Findings: AP measurements obtained on the longitudinal images Transverse measurements obtained on the transverse images Proximal (suprarenal): 3.0 cm x 2.7 cm Mid (infrarenal): 2.7 cm x 2.4 cm Distal: 4.0 cm x 4.0 cm Right LYNDON: 1.4 cm Left LYNDON: 1.2 cm Impression: 1. Maximum infrarenal aortic diameter is 4.0 cm, previously 4.0 cm. This is aneurysmal. 2. Maximum right LYNDON diameter is 1.4 cm, previously 1.7 cm. This is not aneurysmal. 3. Maximum left LYNDON diameter is 1.2 cm, previously 1.3 cm. This is not aneurysmal. THE REPORT OF THE PATIENT'S FINDINGS ENDS HERE. Recommendations from the [place] Vascular Surgery Department: Small infrarenal abdominal aortic aneurysms (AAA), less than 5.0 cm in diameter, should be followed by the primary provider until the aneurysm reaches 5.0 cm. AAA 3.0 cm - 3.9 cm Ultrasound every 2 years AAA 4.0 cm - 4.9 cm Ultrasound every 6 months AAA 5.0 cm or greater, CTA with [...] and refer to Vascular Surgery * Ascending aneurysms are managed by cardiothoracic surgery * The presence of thrombus in the aneurysm is expected and does not change the recommendations INATHANAEL, have reviewed the images and report. Primary Interpreting Staff: NATHANAEL DAVIS MD, RADIOLOGIST (Carbon Plant Grinder) Primary Interpreting Resident: GENARO VALE MD, CONTENT DESIGNER /NATHANAEL RAMOS [facility] Encounter Notes: All associated encounter notes This section contains the clinical notes associated to the Encounter. Date/Time Encounter Note(s) Provider Source Jan 23, 2023 02:17 PM LETTERS: LOCAL TITLE: FOLLOW UP RESULTS LETTER STANDARD TITLE: LETTERS DATE OF NOTE: JAN 23, 2023@14:17 ENTRY DATE: JAN 23, 2023@14:17:12 AUTHOR: DENY MEANS COSIGNER: URGENCY: STATUS: COMPLETED [facility] [address] [place] [address] Jan [place] [address] [facility] [address] [place] [id number] Dear [place]: I am writing to inform you of the results of testing that you had done recently at the [facility]. Additional Comments: Comments: for your recent abdominal aorta ultrasound, the aorta stayed at 4.0 cm, which is unchanged. The right common iliac artery (in the groin, going to the R leg) is 1.3 cm, which is actually decreased from 1.7, and the left common iliac artery went from 1.3 cm to 1.2. We will repeat another ultrasound in 6 months. If you have any further questions or problems, please contact our nursing staff or provider at the following number: [phone]. Sincerely, Deny Means MD Physician DENY MEANS [facility] Jan 23, 2023 09:03 AM PULMONARY NOTE: LOCAL TITLE: PULMONARY LUNG NODULE NOTE STANDARD TITLE: PULMONARY NOTE DATE OF NOTE: JAN 23, 2023@09:03 ENTRY DATE: JAN 23, 2023@09:04:06 AUTHOR: PRADEEP TEJADA EXP COSIGNER: URGENCY: STATUS: COMPLETED Lung Nodule Registry Follow Up: Date of initial imaging exam: 10/31/2021 Lnr Initial Image Date Date of current follow up image: January 22, 2023 The patient will be tracked by the [facility]. Patient risk level: High Nodule density: Solid Number of nodules: Single nodule or >/=6 nodules Size of nodule of greatest concern: At least one nodule >/=8mm Nodule border: Regular/smooth Location of largest nodule: Right Lower Lobe Behavior: Stable (<1.5mm change in diameter). Next CT is recommended in 4 months. (Interim CT scan completed, will continue with LNT f/u scan May 2023) /kasi/ PRADEEP TEJADA RN REGISTERED NURSE Signed: 01/23/2023 09:16 PRADEEP TEJADA [facility]
[2023-11-11 09:14] LABS: Strep A DNA Probe* NOT DETECTED (Not Detectd)
== END 2023-11-11 09:57 | disposition home or self-care (01) ==
LOC: ED 09:01
PROVIDERS: Emergency Provider Student in an Organized Health Care Education/Training Program; PCP Internal Medicine
DX: L74.3 Miliaria, unspecified (principal)
CPT/HCPCS: 87651; 99282; 99283